=== PATIENT | male | born 1995 | race African-American/Black ===

== ENCOUNTER 2020-06-25 23:09 | Emergency (ER) | payer OTHER ==
[~2020-06-25] VITALS: Ht 177.8 cm; Wt 78.0 kg
[2020-06-25] MEDS ORDERED: MORPHINE SULFATE 4 MG/ML CPJ (NOT FOR IM USE) IV STA (23:25)
[2020-06-25] MEDS ORDERED: ONDANSETRON HCL 4MG/2ML INJ IV STA (23:25)
[2020-06-25] MEDS ORDERED: SODIUM CHLORIDE 0.9% 1,000 ML IV ONE (23:30)
[2020-06-26] MEDS ORDERED: ETOMIDATE 2MG/ML 10ML VIAL IV ONE (00:15)
[2020-06-26 03:00] VITALS: BP 121/72
== END 2020-06-26 03:30 | disposition home or self-care (01) ==
LOC: ER 23:42
DX: S43.005A Unspecified dislocation of left shoulder joint, initial encounter (principal); W10.1XXA Fall (on)(from) sidewalk curb, initial encounter; Y93.89 Activity, other specified; Y92.89 Other specified places as the place of occurrence of the external cause; Y99.8 Other external cause status
CPT/HCPCS: 23650; 73030; 93005; 96361; 96374; 96375; 99152; 99285; J2270; J2405; J3490; J7030; L3670

== ENCOUNTER 2021-03-08 13:15 | Emergency (ER) | payer MEDICAID, OTHER ==
[~2021-03-08] VITALS: Ht 177.8 cm; Wt 86.0 kg
[2021-03-08] MEDS ORDERED: IBUP-2029 MT (15:41)
[2021-03-08] MEDS ORDERED: IBUPROFEN 600MG TABLET PO ONE (15:45)
[2021-03-08 16:15] VITALS: BP 121/80
== END 2021-03-08 16:24 | disposition home or self-care (01) ==
LOC: ER 13:15
DX: M25.562 Pain in left knee (principal); R03.0 Elevated blood-pressure reading, without diagnosis of hypertension
CPT/HCPCS: 73562; 99283